=== PATIENT | male | born 1985 | race Two or more races ===

== ENCOUNTER 2017-07-06 22:47 | Emergency (ER) | payer OTHER ==
[2017-07-07] MEDS: KETOROLAC 60 MG INJ IM (00:40)
[2017-07-07] MEDS: ACETAMINOPHEN 325 MG TAB PO (00:41)
== END 2017-07-07 01:28 | disposition home or self-care (01) ==
LOC: FTE 22:47
DX: B34.9 Viral infection, unspecified (principal)
CPT/HCPCS: 96372; 99284-25